=== PATIENT | male | born 1945 | race Two or more races ===

== ENCOUNTER 2024-07-24 13:32 | Emergency (ER) | payer BC, OTHER ==
[~2024-07-24] VITALS: Ht 170.2 cm; Wt 77.6 kg
[2024-07-24 15:47] VITALS: BP 169/70; PULSE 95; RESP 18; O2SAT 96
[2024-07-24] MEDS: LIDOCAINE 1% HCL (LOCAL ANESTH.) INJ 20ML MDV IJ ONE (16:06)
[2024-07-24] MEDS: TETANUS-DIPTH-ACEL PERTUSSIS 0.5ML SYR Tdap IM ONE (16:27)
== END 2024-07-24 16:53 | disposition home or self-care (01) ==
LOC: ER 13:32
DX: S61.213A Laceration without foreign body of left middle finger without damage to nail, initial encounter (principal); W26.8XXA Contact with other sharp object(s), not elsewhere classified, initial encounter; Y93.89 Activity, other specified; Y92.89 Other specified places as the place of occurrence of the external cause; Y99.8 Other external cause status
CPT/HCPCS: 12002; 73130; 90471; 90715; 99283; J2003